=== PATIENT | female | born 1955 | race Caucasian/White ===

== ENCOUNTER 2021-03-30 10:25 | Observation (INO) | payer MEDICARE, OTHER ==
[2021-03-30] MEDS ORDERED: Sodium Chloride 0.9% 10 ML Syringe FLUSH ONE (10:49)
[2021-03-30] MEDS ORDERED: Sodium Chloride 0.9% 80 ML IV SCH (11:00)
[2021-03-30] MEDS ORDERED: Iopamidol 612 MG/ML 100 ML Bottle IV SCH (11:00)
--- NOTE | 2021-03-30 12:41 | CRLCT ---
Indication: Fall Technique: Volumetric multidetector CT images of the head were obtained without the administration of low osmolar intravenous contrast. Comparison: None available Findings: There is no intra-axial or extra-axial fluid collection. There is no mass effect or midline shift. There is age-related cortical atrophy with mild sulcal widening and ex vacuo dilatation of the lateral ventricles. There are chronic small vessel disease changes in the subcortical and periventricular white matter without lost victoria-white differentiation. The orbits and their contents are grossly within normal limits. There is a large frontal subgaleal soft tissue laceration and hematoma. The underlying bony calvarium is otherwise grossly intact. The paranasal sinuses are clear. The mastoid air cells are well aerated. Impression: Large left frontal subgaleal soft tissue laceration and hematoma without evidence of acute intracranial abnormality. Please note that all CT scans at this facility use dose modulation, iterative reconstruction, and/or weight-based dosing when appropriate to reduce radiation dose to as low as reasonably achievable. Dictated by Adrian Sharp MD @ 03/30/2021 12:40:[address] Adrian Sharp @ Mar 30 2021 12:40PM
[2021-03-30] MEDS ORDERED: fentaNYL 100 MCG/2 ML SDV ONE (13:30)
[2021-03-30] MEDS: fentaNYL 100 MCG/2 ML SDV IVPUSH ONE (13:35)
--- NOTE | 2021-03-30 14:06 | CRLCT ---
Indication: Fall, trauma Technique: Volumetric multidetector CT images of the chest, abdomen, and pelvis were obtained after the administration of intravenous contrast. 100 cc Isovue-300 low osmolar intravenous contrast Comparison: None available. FINDINGS: CHEST Postoperative changes of the thyroid gland status post left hemithyroidectomy are appreciated. Otherwise, the thoracic inlet is unremarkable. The thoracic aorta is nonaneurysmal. There is no filling defect to suggest pulmonary embolus. There is no mediastinal, hilar, or axillary adenopathy. There is dependent bibasilar atelectasis versus scar. There is no dense consolidation, effusion or pneumothorax. There is mild interlobular septal thickening. The thoracic osseus structures are intact without fracture, lytic, or blastic lesion. There is age indeterminant endplate deformity of the T5 superior endplate. Otherwise the vertebral body heights are grossly maintained in satisfactory alignment with moderate multilevel degenerative disc disease. There is additional nondisplaced fracture through the T12 superior endplate. No other large, displaced injuries are appreciated. There is no extension to the posterior elements. ABDOMEN AND PELVIS The liver is enlarged with moderate hepatic steatosis. There is no focal abnormality. The spleen is normal in attenuation and size. The gallbladder is unremarkable without radiopaque calculus. There is no intrahepatic or common ductal dilatation. The stomach and duodenum are grossly unremarkable. The pancreas is normal in enhancement without significant atrophy. There is likely an adenoma within the left adrenal gland otherwise the adrenal glands are unremarkable. Nonspecific perinephric stranding and cystic changes of the kidneys are appreciated There is a moderate diffuse amount of intracolonic stool. There is minimal distal colonic diverticulosis. The appendix is unremarkable without significant inflammatory change. The abdominal aorta is non aneurysmal with moderate atherosclerotic calcification. There are calcified fibroids within the uterus otherwise the pelvic viscera are grossly within normal limits. There is demonstration of a circumscribed mass within the left upper quadrant mesentery seen on series 2, image 124 with no apparent connection to adjacent bowel measuring 3.3 centimeters. There is no additional central mesenteric pelvic or retroperitoneal adenopathy. The anterior abdominal wall is grossly intact without significant hernias. There is no free air or free fluid. Moderate degenerative changes of the bilateral hips and sacroiliac joints are appreciated otherwise there is no evidence of displaced pelvic fracture. The lumbar vertebral body heights demonstrate minimal endplate Schmorl`s defects with straightening of the normal lordosis and trace retrolisthesis of L3 on L4. There is moderate facet arthrosis. There is no evidence of displaced fracture. Impression: 1. Somewhat age indeterminate endplate deformity of the T5 vertebral body. 2. Nondisplaced fracture through the left superolateral aspect of the T12 vertebral body. 3. Incidental note made of a circumscribed mass lesion within the left upper quadrant mesentery measuring 3.3 centimeters. Differential considerations could include a fibroma versus pathologic mesenteric lymph node. Follow-up with PET-CT and/or repeat CT of the abdomen and pelvis with oral and IV contrast. 4. Otherwise no evidence of acute abnormality of the chest, abdomen or pelvis. Please note that all CT scans at this facility use dose modulation, iterative reconstruction, and/or weight-based dosing when appropriate to reduce radiation dose to as low as reasonably achievable. Dictated by Adrian Sharp MD @ 03/30/2021 12:55:[address] Adrian Sharp @ Mar 30 2021 12:55PM
--- NOTE | 2021-03-30 14:06 | CRLCT ---
Indication: Fall, neck Pain Technique: Volumetric multidetector CT images of the cervical spine were obtained without the administration of IV contrast. Comparison: None available. Findings: The cervical vertebral body heights are grossly maintained with minimal endplate Schmorl`s defects. There is straightening of the normal cervical lordosis with minimal anterolisthesis of C2 on C3 and C3 on C4. There is no displaced fracture or dislocation of the cervical vertebral bodies. There is questionable nondisplaced lucency through the posterior aspect of the left 2nd rib which may represent a nondisplaced injury. There is moderate to severe degenerative disc disease with disc height loss, marginal osteophyte formation and flowing osteophytes anteriorly with likely minimal ossification of the posterior longitudinal ligament. There is moderate to severe facet arthrosis. The paraspinous soft tissues are grossly within normal limits. Impression: Moderate to severe degenerative changes of the cervical spine without displaced fracture of the vertebral bodies. Incidental note is made of a nondisplaced lucency through the posterior aspect of the left 2nd rib which may represent a nondisplaced fracture. Please note that all CT scans at this facility use dose modulation, iterative reconstruction, and/or weight-based dosing when appropriate to reduce radiation dose to as low as reasonably achievable. Dictated by Adrian Sharp MD @ 03/30/2021 1:25:[address] Adrian Sharp @ Mar 30 2021 1:25PM
[2021-03-30] MEDS ORDERED: oxyCODONE 5 MG Tab PO ONE (14:58)
[2021-03-30] MEDS ORDERED: Ondansetron 4 MG/2 ML SDV IVPUSH ONE (14:58)
[2021-03-30] MEDS ORDERED: Acetaminophen 325 MG Tab PO ONE (14:59)
--- NOTE | 2021-03-30 15:01 | EDM.PDOC ---
<Stu Blackmon - Last Filed: 03/30/21 18:23> ED HPI GENERAL MEDICAL PROBLEM - General Chief Complaint: Head Injury Stated Complaint: FELL AND ROLLED DOWN HILL Time Seen by Provider: 03/30/21 11:20 - Related Data Allergies Allergy/AdvReac Type Severity Reaction Status Date / Time amoxicillin [From Augmentin] Allergy Nausea and Verified 03/30/21 11:00 Vomiting ceftriaxone Allergy Hives Verified 03/30/21 11:00 Cephalosporins Allergy Hives Verified 03/30/21 11:00 ciprofloxacin Allergy Hives Verified 03/30/21 11:00 clavulanic acid Allergy Nausea and Verified 03/30/21 11:00 [From Augmentin] Vomiting Penicillins Allergy Vomiting Verified 03/30/21 11:00 Sulfa (Sulfonamide Allergy Other Verified 03/30/21 11:00 Antibiotics) Home Meds: Home Meds Albuterol Sulfate [Albuterol Sulfate Hfa] 1 - 2 puff IH ASDIRECTED 03/30/21 [History] Aspirin [Halfprin] 81 mg PO DAILY 03/30/21 [History] Bisoprolol/Hydrochlorothiazide [Bisoprolol/HCTZ 5-6.25 MG] 1 tab PO DAILY 03/30/21 [History] Famotidine 20 mg PO DAILY 03/30/21 [History] Iron Ps Cmplx/Vit B12/Fa [Poly-Iron 150 Forte] 1 tab PO DAILY 03/30/21 [History] L. Acidophilus/L.bulgaricus [Lactobacillus Tablet] 1 tab PO DAILY 03/30/21 [History] Levothyroxine 75 mcg PO ACBREAKFAST 03/30/21 [History] Losartan [Cozaar] 50 mg PO DAILY 03/30/21 [History] Montelukast [Singulair] 10 mg PO DAILY 03/30/21 [History] Pravastatin [Pravachol] 1 tab PO DAILY 03/30/21 [History] Venlafaxine [Effexor] 75 mg PO BID 03/30/21 [History] hydrOXYzine HCL [Hydroxyzine HCl] 50 mg PO BID 03/30/21 [History] metFORMIN [Glucophage] 1,000 mg PO BIDMEALS 03/30/21 [History] oxyCODONE 5 mg PO Q6H PRN #8 tab 05/30/21 [Rx] tiZANidine [Zanaflex] 2 mg PO BEDTIME 03/30/21 [History] Course - Re-Assessments/Exams Free Text/Narrative Re-Assessment/Exam: 03/30/21 16:11 65-year-old female seen and evaluated, treated by Dr. Morin who was scheduled for discharge but unfortunately with the significant pain from the T12 fracture she was unable to ambulate even with a walker. I discussed this with Dr. Tierney, he agreed to evaluate her for admission for pain control, therapy, and any further treatment needed. Departure - Departure Time of Disposition: 17:39 Disposition: Admitted As Inpatient 65 Clinical Impression: Scalp laceration Qualifiers: Encounter type: initial encounter Qualified Code(s): S01.01XA - Laceration without foreign body of scalp, initial encounter Fall Qualifiers: Encounter type: initial encounter Qualified Code(s): W19.XXXA - Unspecified fall, initial encounter - Discharge Information <Domenic Morin - Last Filed: 03/31/21 07:40> ED HPI GENERAL MEDICAL PROBLEM - History of Present Illness INITIAL COMMENTS - FREE TEXT/NARRATIVE: This is a 65-year-old female without significant medical history who presents after she stumbled and rolled down a hill. She was throwing ice out of a cooler when she lost her footing, rolled down a hill and into a brick wall. She struck the wall of the left side of her head and body. Patient was brought to the ED by EMS. She was hemodynamically stable in route. When I initially evaluate her on the stretcher in the ER she is concerned of left-sided flank pain and a headache. She is also endorsing some left-sided cervical neck pain. She is not on any blood thinners. 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 Musculoskeletal History: Reports: Arthritis Neurological History: Reports: Headaches, Chronic, Migraines Psychiatric History: Reports: Anxiety, Depression, Panic Attack Endocrine/Metabolic History: Reports: Diabetes, Type II, Hypothyroidism, Obesity/BMI 30+ Dermatologic History: Reports: None - Infectious Disease History Infectious Disease History: Reports: Chicken Pox, Measles, Mumps - Past Surgical History Head Surgeries/Procedures: Reports: None HEENT Surgical History: Reports: Adenoidectomy, Cataract Surgery, Tonsillectomy Cardiovascular Surgical History: Reports: None Respiratory Surgical History: Reports: None GI Surgical History: Reports: None Female Surgical History: Reports: Section, D&C Endocrine Surgical History: Reports: None Neurological Surgical History: Reports: None Musculoskeletal Surgical History: Reports: Knee Replacement, Shoulder Surgery, Other (See Below) Dermatological Surgical History: Reports: Skin Biopsy Social & Family History - Tobacco Use Tobacco Use Status *Q: Current Every Day Tobacco User Years of Tobacco use: 50 Packs/Tins Daily: 0.5 Used Tobacco, but Quit: No Second Hand Smoke Exposure: No - Caffeine Use Caffeine Use: Reports: Tea - Recreational Drug Use Recreational Drug Use: No ED ROS GENERAL - Review of Systems Review Of Systems: See Below Constitutional: Reports: No Symptoms HEENT: Reports: No Symptoms Respiratory: Reports: No Symptoms Cardiovascular: Reports: No Symptoms Endocrine: Reports: No Symptoms GI/Abdominal: Reports: No Symptoms. Denies: Abdominal Pain : Reports: No Symptoms Musculoskeletal: Reports: Neck Pain Skin: Reports: Wound Neurological: Reports: Headache Psychiatric: Reports: No Symptoms Hematologic/Lymphatic: Reports: No Symptoms Immunologic: Reports: No Symptoms ED EXAM, HEAD INJURY - Physical Exam Exam: See Below Exam Limited By: No Limitations General Appearance: Alert, Mild Distress Head: Normocephalic, Scalp Lacerations (Large scalp laceration, approximately 4 cm around the posterior part of left ear.), Facial Lacerations (Superficial gee sions over the left forehead) Nose: Normal Inspection Neck: Tender Lateral (Left lateral tenderness noted, no midline tenderness, no step-off) Respiratory: Lungs Clear, Other (Left-sided lower and posterior rib tenderness) Cardiovascular: Regular Rate, Rhythm GI/Abdominal Exam: Soft, Non-Tender Back Exam: Normal Inspection Extremities: Normal Inspection, Normal Range of Motion Neurologic: No Motor/Sensory Deficits, Alert, Oriented x 3. No: Motor Weakness, Sensory Deficit ED LACERATION/WOUND & LINO PROC - Laceration/Wound Repair Left Head Lac/wound length in cm: 4 Appearance: Irregular Distal NVT: Neuro & Vascular Intact Local Anesthesia - Lidocaine (Xylocaine): 1% Plain Local Anesthetic Volume: 3cc Saline irrigation (cc's): 250 Exploration/Debridement/Repair: Wound Explored, Minimal Debridement Closed with: Sutures Suture Size: 4-0 Suture Type: Prolene, Simple # of Sutures: 6 Tetanus Status Addressed: Yes Complications: No Course - Vital Signs Last Recorded V/S: Last Vital Signs Temp 36.1 C 03/31/21 03:14 Pulse 80 03/31/21 03:14 Resp 18 03/31/21 03:14 BP 138/65 03/31/21 03:14 Pulse Ox 90 L 03/31/21 03:14 - Orders/Labs/Meds Orders: Medication Orders Acetaminophen (Acetaminophen 325 Mg Tab) 650 mg PO Q4H PRN PRN Reason: Pain (Mild 1-3)/fever Albuterol (Albuterol 8 Gm Inhaler) 0 gm INH ASDIRECTED [facility] Albuterol (Albuterol 0.083% 2.5 Mg/3 Ml Neb Soln) 2.5 mg NEB Q4H PRN PRN Reason: Shortness Of Breath/wheezing Aspirin (Aspirin 81 Mg Tab.Ec) 81 mg PO DAILY [facility] Dextrose (Glucose Gel 15 Gm In 37.5 Gm Tube) 15 gm PO ONETIME PRN PRN Reason: Hypoglycemia Dextrose/Water (50% Dextrose In Water 50 Ml Syringe) 50 ml IV ONETIME PRN PRN Reason: Hypoglycemia Enoxaparin Sodium (Enoxaparin 40 Mg/0.4 Ml Syringe) 40 mg SUBCUT BEDTIME [facility] Last Admin: 03/30/21 21:37 Dose: 40 mg Documented by: VICKY Hydromorphone HCl (Hydromorphone 0.5 Mg/0.5 Ml Syringe) 0.5 mg IVPUSH Q2H PRN PRN Reason: Pain (severe 7-10) Hydroxyzine HCl (Hydroxyzine Hcl 25 Mg Tab) 50 mg PO BID [facility] Last Admin: 03/30/21 21:37 Dose: 50 mg Documented by: VICKY Sodium Chloride (Normal Saline) 1,000 mls @ 125 mls/hr IV ASDIRECTED [facility] Last Admin: 03/31/21 02:00 Dose: 125 mls/hr Documented by: Infusion: 03/31/21 02:00 Dose: 125 mls/hr Documented by: Admin: 03/30/21 18:15 Dose: 125 mls/hr Documented by: VICKY Insulin Human Lispro (Insulin Lispro 100 Unit/Ml 3 Ml Kwikpen) 0 unit SUBCUT QIDACANDBED [facility]; Protocol Last Admin: 03/30/21 21:33 Dose: 2 unit Documented by: VICKY Parikhigned by: BELINDA Admin: 03/30/21 18:33 Dose: 1 unit Documented by: VICKY Parikhigned by: GIANA Levothyroxine Sodium (Levothyroxine 25 Mcg Tab) 75 mcg PO ACBREAKFAST [facility] Losartan Potassium (Losartan 50 Mg Tab) 50 mg PO DAILY [facility] Metformin HCl (Metformin 500 Mg Tab) 1,000 mg PO BIDMEALS [facility] Nicotine (Nicotine 14 Mg/24 Hr Patch) 14 mg TRDERM DAILY [facility] Last Admin: 03/30/21 21:26 Dose: Not Given Documented by: VICKY Nicotine Polacrilex (Nicotine Polacrilex 2 Mg Gum) 2 mg CHEW Q1H PRN PRN Reason: Other Non-Formulary Medication (Bisoprolol/Hydrochlorothiazide [Bisoprolol/Hctz 5-6.25 Mg]) 1 tab PO DAILY [facility] Ondansetron HCl (Ondansetron 4 Mg/2 Ml Sdv) 4 mg IV Q4H PRN PRN Reason: Nausea/Vomiting Oxycodone HCl (Oxycodone 5 Mg Tab) 5 mg PO Q4H PRN PRN Reason: Pain (moderate 4-6) Last Admin: 03/31/21 03:57 Dose: 5 mg Documented by: Admin: 03/30/21 23:30 Dose: 5 mg Documented by: Admin: 03/30/21 19:22 Dose: 5 mg Documented by: BELINDA Pantoprazole Sodium (Pantoprazole 40 Mg Tab.Cr) 40 mg PO ACBREAKFAST [facility] Polyethylene Glycol (Polyethylene Glycol 3350 Powder 17 Gm Packet) 17 gm PO DAILY PRN PRN Reason: Constipation Pravastatin Sodium (Pravastatin 20 Mg Tab) 40 mg PO DAILY [facility] Sodium Chloride (Sodium Chloride 0.9% 10 Ml Syringe) 10 ml FLUSH ASDIRECTED PRN PRN Reason: Keep Vein Open Tizanidine HCl (Tizanidine 2 Mg Tab) 2 mg PO BEDTIME [facility] Last Admin: 03/30/21 21:37 Dose: 2 mg Documented by: VICKY Venlafaxine HCl (Venlafaxine 75 Mg Tab) 75 mg PO BID [facility] Last Admin: 03/30/21 21:37 Dose: 75 mg Documented by: WISULIN Labs: Laboratory Tests 03/30/21 03/30/21 Range/Units 10:54 10:54 WBC 9.3 (4.5-11.0) K/uL RBC 4.06 (3.30-5.50) M/uL Hgb 11.8 L (12.0-15.0) g/dL Hct 39.0 (36.0-48.0) % MCV 96 (80-98) fL MCH 29 (27-31) pg MCHC 30 L (32-36) % Plt Count 364 (150-400) K/uL Sodium 142 (140-148) mmol/L Potassium 4.7 (3.6-5.2) mmol/L Chloride 106 (100-108) mmol/L Carbon Dioxide 25 (21-32) mmol/L Anion Gap 11.1 (5.0-14.0) mmol/L BUN 18 (7-18) mg/dL Creatinine 0.9 (0.6-1.0) mg/dL Est Cr Clr Drug Dosing 55.33 mL/min Estimated GFR (MDRD) > 60 (>60) Glucose 154 H (74-106) mg/dL Calcium 8.8 (8.5-10.1) mg/dL Total Bilirubin 0.2 (0.2-1.0) mg/dL AST 38 H (15-37) U/L ALT 34 (12-78) U/L Alkaline Phosphatase 129 H (46-116) U/L Total Protein 6.6 (6.4-8.2) g/dL Albumin 3.5 (3.4-5.0) g/dL Globulin 3.1 (2.3-3.5) g/dL Albumin/Globulin Ratio 1.1 L (1.2-2.2) Meds: Medications Generic Name Dose Route Start Last Admin Trade Name Freq PRN Reason Stop Dose Admin Acetaminophen 650 mg 03/30/21 17:58 Acetaminophen 325 Mg Tab PO Q4H PRN Pain (Mild 1-3)/fever Albuterol 0 gm 03/30/21 17:58 Albuterol 8 Gm Inhaler INH ASDIRECTED [facility] Albuterol 2.5 mg 03/30/21 17:58 Albuterol 0.083% 2.5 Mg/3 Ml Neb Soln NEB Q4H PRN Shortness Of Breath/wheezing Aspirin 81 mg 03/31/21 09:00 Aspirin 81 Mg Tab.Ec PO DAILY [facility] Dextrose 15 gm 03/30/21 17:58 Glucose Gel 15 Gm In 37.5 Gm Tube PO ONETIME PRN Hypoglycemia Dextrose/Water 50 ml 03/30/21 17:58 50% Dextrose In Water 50 Ml Syringe IV ONETIME PRN Hypoglycemia Enoxaparin Sodium 40 mg 03/30/21 21:00 03/30/21 21:37 Enoxaparin 40 Mg/0.4 Ml Syringe SUBCUT 40 mg BEDTIME [facility] Administration Hydromorphone HCl 0.5 mg 03/30/21 17:58 Hydromorphone 0.5 Mg/0.5 Ml Syringe IVPUSH Q2H PRN Pain (severe 7-10) Hydroxyzine HCl 50 mg 03/30/21 21:00 03/30/21 21:37 Hydroxyzine Hcl 25 Mg Tab PO 50 mg BID [facility] Administration Sodium Chloride 1,000 mls @ 125 mls/hr 03/30/21 17:58 03/31/21 02:00 Normal Saline IV 125 mls/hr ASDIRECTED [facility] Administration Insulin Human Lispro 0 unit 03/30/21 17:58 03/30/21 21:33 Insulin Lispro 100 Unit/Ml 3 Ml Kwikpen SUBCUT 2 unit QIDACANDBED [facility] Administration Protocol Levothyroxine Sodium 75 mcg 03/31/21 07:30 Levothyroxine 25 Mcg Tab PO ACBREAKFAST [facility] Losartan Potassium 50 mg 03/31/21 09:00 Losartan 50 Mg Tab PO DAILY [facility] Metformin HCl 1,000 mg 03/31/21 08:00 Metformin 500 Mg Tab PO BIDMEALS [facility] Nicotine 14 mg 03/30/21 18:00 03/30/21 21:26 Nicotine 14 Mg/24 Hr Patch TRDERM Not Given DAILY [facility] Nicotine Polacrilex 2 mg 03/30/21 17:58 Nicotine Polacrilex 2 Mg Gum CHEW Q1H PRN Other Non-Formulary Medication 1 tab 03/31/21 09:00 Bisoprolol/Hydrochlorothiazide [Bisoprolol/Hctz 5-6.25 Mg] PO DAILY [facility] Ondansetron HCl 4 mg 03/30/21 17:58 Ondansetron 4 Mg/2 Ml Sdv IV Q4H PRN Nausea/Vomiting Oxycodone HCl 5 mg 03/30/21 17:58 03/31/21 03:57 Oxycodone 5 Mg Tab PO 5 mg Q4H PRN Administration Pain (moderate 4-6) Pantoprazole Sodium 40 mg 03/31/21 07:30 Pantoprazole 40 Mg Tab.Cr PO ACBREAKFAST [facility] Polyethylene Glycol 17 gm 03/30/21 17:58 Polyethylene Glycol 3350 Powder 17 Gm Packet PO DAILY PRN Constipation Pravastatin Sodium 40 mg 03/31/21 09:00 Pravastatin 20 Mg Tab PO DAILY [facility] Sodium Chloride 10 ml 03/30/21 17:58 Sodium Chloride 0.9% 10 Ml Syringe FLUSH ASDIRECTED PRN Keep Vein Open Tizanidine HCl 2 mg 03/30/21 21:00 03/30/21 21:37 Tizanidine 2 Mg Tab PO 2 mg BEDTIME [facility] Administration Venlafaxine HCl 75 mg 03/30/21 21:00 03/30/21 21:37 Venlafaxine 75 Mg Tab PO 75 mg BID [facility] Administration Discontinued Medications Generic Name Dose Route Start Last Admin Trade Name Freq PRN Reason Stop Dose Admin Acetaminophen 650 mg 03/30/21 14:59 03/30/21 15:16 Acetaminophen 325 Mg Tab PO 03/30/21 15:00 650 mg NOW ONE Administration Fentanyl Confirm 03/30/21 13:30 03/30/21 18:09 Fentanyl 100 Mcg/2 Ml Sdv Administered 03/30/21 13:31 Not Given Dose 100 mcg .ROUTE .STK-MED ONE Sodium Chloride 80 mls @ 3 mls/sec 03/30/21 11:00 03/30/21 11:44 Normal Saline IV 03/30/21 11:01 3 mls/sec ASDIRECTED [facility] Administration Iopamidol 100 ml 03/30/21 11:00 03/30/21 11:44 Iopamidol 612 Mg/Ml 100 Ml Bottle IV 03/30/21 12:00 100 ml . DIRECTED [facility] Administration Lidocaine HCl Confirm 03/30/21 14:31 03/30/21 16:44 Lidocaine 1% 5 Ml Sdv Administered 03/30/21 14:32 5 ml Dose Administration 5 ml .ROUTE .STK-MED ONE Ondansetron HCl 4 mg 03/30/21 14:58 03/30/21 15:14 Ondansetron 4 Mg/2 Ml Sdv IVPUSH 03/30/21 14:59 4 mg ONETIME ONE Administration Oxycodone HCl 5 mg 03/30/21 14:58 03/30/21 15:16 Oxycodone 5 Mg Tab PO 03/30/21 14:59 5 mg ONETIME ONE Administration Sodium Chloride 10 ml 03/30/21 10:49 03/30/21 11:44 Sodium Chloride 0.9% 10 Ml Syringe FLUSH 03/30/21 10:50 10 ml ONETIME ONE Administration - Re-Assessments/Exams Free Text/Narrative Re-Assessment/Exam: Is a 65-year-old female who underwent a traumatic work-up after a fall and rolled down a embankment into a brick wall. History is gathered by both patient and EMS. She was evaluated on the stretcher upon arrival to the ER. Her initial vital signs were stable. She was noted to have significant head and neck trauma as well as tenderness along the left lower rib cage. She is not anticoagulated. Her physical exam findings raise concern for intracranial injury, neck injury, and/or other intrathoracic or abdominal traumatic injury. CT of the head, neck, chest abdomen pelvis was obtained. These were remarkable for a subgaleal hematoma on the left side, no cervical spine injury, no intrathoracic or abdominal injury, she was noted to have a lateral T12 endplate fracture. Laceration was repaired as above. Blood work reassuring She was signed out to my colleague pending an ambulatory trial with plan for possible discharge with follow-up in her home city versus admission for pain control. 03/30/21 15:01 Departure - Departure Time of Disposition: 14:59 - Discharge Information *PRESCRIPTION DRUG MONITORING PROGRAM REVIEWED*: No *COPY OF PRESCRIPTION DRUG MONITORING REPORT IN PATIENT GILBERT: No Sepsis Event Note (ED) - Evaluation Sepsis Screening Result: No Definite Risk
--- NOTE | 2021-03-30 16:46 | PCM.HP.2 ---
H&P History of Present Illness - General Date of Service: 03/30/21 Admit Problem/Dx: Admission Diagnosis/Problem Admission Diagnosis/Problem Fracture of vertebra Source of Information: Patient, Provider, RN Notes Reviewed History Limitations: Reports: No Limitations - History of Present Illness Initial Comments - Free Text/Narative: Ms. Parnell is a 65-year-old woman who was admitted through the emergency department observation status for management of pain secondary to a T12 vertebral body fracture. She was well until this morning when she fell down a hill hitting a block wall. She was brought into the emergency department by EMS for further evaluation. CT scan of the head and neck shows no acute fractures or abnormalities. She also underwent CT scan of the chest abdomen and pelvis. This did show evidence of probably an old T5 compression fracture as well as an acute fracture in the body of T12. 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 Follow-up with CT scan IV and oral contrast versus PET scan recommended. Because of her fracture she is very uncomfortable and unable to transfer or ambulate. - Related Data Allergies/Adverse Reactions: Allergies Allergy/AdvReac Type Severity Reaction Status Date / Time amoxicillin [From Augmentin] Allergy Nausea and Verified 03/30/21 11:00 Vomiting ceftriaxone Allergy Hives Verified 03/30/21 11:00 Cephalosporins Allergy Hives Verified 03/30/21 11:00 ciprofloxacin Allergy Hives Verified 03/30/21 11:00 clavulanic acid Allergy Nausea and Verified 03/30/21 11:00 [From Augmentin] Vomiting Penicillins Allergy Vomiting Verified 03/30/21 11:00 Sulfa (Sulfonamide Allergy Other Verified 03/30/21 11:00 Antibiotics) Home Medications: Home Meds Albuterol Sulfate [Albuterol Sulfate Hfa] 1 - 2 puff IH ASDIRECTED 03/30/21 [History] Aspirin [Halfprin] 81 mg PO DAILY 03/30/21 [History] Bisoprolol/Hydrochlorothiazide [Bisoprolol/HCTZ 5-6.25 MG] 1 tab PO DAILY 03/30/21 [History] Famotidine 20 mg PO DAILY 03/30/21 [History] Iron Ps Cmplx/Vit B12/Fa [Poly-Iron 150 Forte] 1 tab PO DAILY 03/30/21 [History] L. Acidophilus/L.bulgaricus [Lactobacillus Tablet] 1 tab PO DAILY 03/30/21 [History] Levothyroxine 75 mcg PO ACBREAKFAST 03/30/21 [History] Losartan [Cozaar] 50 mg PO DAILY 03/30/21 [History] Montelukast [Singulair] 10 mg PO DAILY 03/30/21 [History] Pravastatin [Pravachol] 1 tab PO DAILY 03/30/21 [History] Venlafaxine [Effexor] 75 mg PO BID 03/30/21 [History] hydrOXYzine HCL [Hydroxyzine HCl] 50 mg PO BID 03/30/21 [History] metFORMIN [Glucophage] 1,000 mg PO BIDMEALS 03/30/21 [History] oxyCODONE 5 mg PO Q6H PRN #8 tab 03/30/21 [Rx] tiZANidine [Zanaflex] 2 mg PO BEDTIME 03/30/21 [History] Past Medical History Cardiovascular History: Reports: High Cholesterol, Hypertension, HI Respiratory History: Reports: Sleep Apnea Other Respiratory History: cpap Genitourinary History: Reports: None 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: , 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 Musculoskeletal History: Reports: Arthritis Neurological History: Reports: Headaches, Chronic, Migraines Psychiatric History: Reports: Anxiety, Depression, Panic Attack Endocrine/Metabolic History: Reports: Diabetes, Type II, Hypothyroidism, Obesity/BMI 30+ Dermatologic History: Reports: None - Infectious Disease History Infectious Disease History: Reports: Chicken Pox, Measles, Mumps - Past Surgical History Head Surgeries/Procedures: Reports: None HEENT Surgical History: Reports: Adenoidectomy, Cataract Surgery, Tonsillectomy Cardiovascular Surgical History: Reports: None Respiratory Surgical History: Reports: None GI Surgical History: Reports: None Female Surgical History: Reports: Section, D&C Endocrine Surgical History: Reports: None Neurological Surgical History: Reports: None Musculoskeletal Surgical History: Reports: Knee Replacement, Shoulder Surgery, Other (See Below) Dermatological Surgical History: Reports: Skin Biopsy Social & Family History - Tobacco Use Tobacco Use Status *Q: Current Every Day Tobacco User Years of Tobacco use: 50 Packs/Tins Daily: 0.5 Used Tobacco, but Quit: No Second Hand Smoke Exposure: No - Caffeine Use Caffeine Use: Reports: Tea - Recreational Drug Use Recreational Drug Use: No H&P Review of Systems - Review of Systems: Review Of Systems: See Below General: Reports: No Symptoms HEENT: Reports: No Symptoms Pulmonary: Reports: No Symptoms Cardiovascular: Reports: No Symptoms Gastrointestinal: Reports: No Symptoms Genitourinary: Reports: No Symptoms Musculoskeletal: Reports: Back Pain Skin: Reports: Other (Abrasion laceration left ear) Psychiatric: Reports: No Symptoms Neurological: Reports: No Symptoms Hematologic/Lymphatic: Reports: No Symptoms Immunologic: Reports: No Symptoms Exam - Exam Exam: See Below - Vital Signs Vital Signs: Last Vital Signs Temp 98.0 F 03/30/21 11:10 Pulse 72 03/30/21 16:44 Resp 20 03/30/21 11:10 BP 117/51 L 03/30/21 16:44 Pulse Ox 94 L 03/30/21 16:44 Weight: 230 lb - Exam Quality Assessment: DVT Prophylaxis General: Alert, Oriented, Cooperative, Moderate Distress HEENT: Conjunctiva Clear, Hearing Intact, Mucosa Moist & [place], Normal Nasal Septum, Posterior Pharynx Clear, Pupils Equal Neck: Supple, Trachea Midline, +2 Carotid Pulse wo Bruit Lungs: Clear to Auscultation, Normal Respiratory Effort Cardiovascular: Regular Rate, Regular Rhythm, Normal S1, Normal S2. No: Systolic Murmur, Diastolic Murmur GI/Abdominal Exam: Soft, Non-Tender, No Organomegaly, No Distention Back Exam: Paraspinal Tenderness, Vertebral Tenderness Extremities: Non-Tender, No Pedal Edema Skin: Warm, Dry, Intact Neurological: Cranial Nerves Intact, Strength Equal Bilateral, Normal Speech, Normal Tone, Sensation Intact. No: Focal Deficit Neuro Extensive - Mental Status: Alert, Oriented x3, Normal Mood/Affect, Normal Cognition, Memory Intact - Patient Data Lab Results Last 24 hrs: Laboratory Results - last 24 hr 03/30/21 03/30/21 Range/Units 10:54 10:54 WBC 9.3 (4.5-11.0) K/uL RBC 4.06 (3.30-5.50) M/uL Hgb 11.8 L (12.0-15.0) g/dL Hct 39.0 (36.0-48.0) % MCV 96 (80-98) fL MCH 29 (27-31) pg MCHC 30 L (32-36) % Plt Count 364 (150-400) K/uL Sodium 142 (140-148) mmol/L Potassium 4.7 (3.6-5.2) mmol/L Chloride 106 (100-108) mmol/L Carbon Dioxide 25 (21-32) mmol/L Anion Gap 11.1 (5.0-14.0) mmol/L BUN 18 (7-18) mg/dL Creatinine 0.9 (0.6-1.0) mg/dL Est Cr Clr Drug Dosing 55.33 mL/min Estimated GFR (MDRD) > 60 (>60) Glucose 154 H (74-106) mg/dL Calcium 8.8 (8.5-10.1) mg/dL Total Bilirubin 0.2 (0.2-1.0) mg/dL AST 38 H (15-37) U/L ALT 34 (12-78) U/L Alkaline Phosphatase 129 H (46-116) U/L Total Protein 6.6 (6.4-8.2) g/dL Albumin 3.5 (3.4-5.0) g/dL Globulin 3.1 (2.3-3.5) g/dL Albumin/Globulin Ratio 1.1 L (1.2-2.2) Result Diagrams: 03/30/21 10:54 03/30/21 10:54 Sepsis Event Note - Evaluation Sepsis Screening Result: No Definite Risk - Focused Exam Vital Signs: Vital Signs Temp Pulse Resp BP Pulse Ox 03/30/21 16:44 72 117/51 L 94 L 03/30/21 15:00 63 165/84 H 03/30/21 11:10 98.0 F 71 20 139/63 96 03/30/21 11:09 98.0 F 71 20 139/63 96 03/30/21 11:08 72 15 150/75 H 95 *Q Meaningful Use (ADM) - VTE Risk Assess *Q Each Risk Factor Represents 1 Point: Obesity ( BMI > 25 kg/m2) Total Score 1 Point Risk Factors: 1 Each Risk Factor Represents 2 Points: Age 60 - 74 Years Total Score 2 Point Risk Factors: 2 Each Risk Factor Represents 3 Points: None Total Score 3 Point Risk Factors: 0 Each Risk Factor Represents 5 Points: None Total Score 5 Point Risk Factors: 0 Venous Thromboembolism Risk Factor Score *Q: 3 Problem List Initiated/Reviewed/Updated: Yes Orders Last 24hrs: Active Orders 24 hr Category Date Time Status Patient Status Manage Transfer [TRANSFER] Routine ADT 03/30/21 16:35 Active Resuscitation Status Routine Resus Stat 03/30/21 16:39 Ordered Assessment/Plan Comment:: ASSESSMENT AND PLAN T12 VERTEBRAL BODY FRACTURE-secondary to a traumatic fall down a hill earlier today. -Pain medication as needed -Physical therapy consult when available -May require [facility] placement because of mobility limitations. MESENTERIC MASS NOTED ON CT OF THE ABDOMEN -Consider follow-up CT scan with IV and oral contrast versus PET scan for further evaluation LACERATION LEFT EAR -Status post repair by Dr. Morin TYPE 2 DIABETES MELLITUS -Continue Metformin -4 times daily glucometers -Low-dose sliding scale Humalog MAINTENANCE ISSUES -DVT prophylaxis; Lovenox 40 mg subcu daily -GI prophylaxis; Protonix -Green catheter; not indicated -Nutrition; regular diet -Nicotine dependence; nicotine patch and nicotine gum CODE STATUS-FULL CODE ADMISSION STATUS-this patient will be admitted to observation status, expect no more than a one night hospital stay for evaluation and management of problems as outlined above. DISPOSITION-anticipate discharge to home after the hospital stay. PRIMARY CARE PROVIDER-patient is from [facility] and receives her primary care there. - Mortality Measure Prognosis:: Good
[2021-03-30] MEDS ORDERED: Nicotine Polacrilex 2 MG Gum CHEW PRN (17:58)
[2021-03-30] MEDS ORDERED: Glucose Gel 15 GM in 37.5 GM Tube PO PRN (17:58)
[2021-03-30] MEDS ORDERED: Albuterol 8 GM Inhaler INH SCH (17:58)
[2021-03-30] MEDS ORDERED: Albuterol 0.083% 2.5 MG/3 ML Neb Soln NEB PRN (17:58)
[2021-03-30] MEDS ORDERED: 50% Dextrose in Water 50 ML Syringe IV PRN (17:58)
[2021-03-30] MEDS ORDERED: Sodium Chloride 0.9% 10 ML Syringe FLUSH PRN (17:58)
[2021-03-30] MEDS ORDERED: Polyethylene Glycol 3350 Powder 17 GM Packet PO PRN (17:58)
[2021-03-30] MEDS: Sodium Chloride 0.9% 1,000 ML IV SCH (18:15)
[2021-03-30] MEDS: Insulin Lispro 100 Unit/ML 3 ML KwikPen SUBCUT SCH ×2 (18:33→21:33)
[2021-03-30] MEDS: oxyCODONE 5 MG Tab PO PRN ×2 (19:22→23:30)
[2021-03-30] MEDS: Nicotine 14 MG/24 Hr Patch TRDERM SCH (21:26)
[2021-03-30] MEDS: Venlafaxine 75 MG Tab PO SCH (21:37)
[2021-03-30] MEDS: tiZANidine 2 MG Tab PO SCH (21:37)
[2021-03-30] MEDS: hydrOXYzine HCl 25 MG Tab PO SCH (21:37)
[2021-03-30] MEDS: Enoxaparin 40 MG/0.4 ML Syringe SUBCUT SCH (21:37)
[2021-03-31] MEDS: Sodium Chloride 0.9% 1,000 ML IV SCH (02:00)
[2021-03-31] MEDS: oxyCODONE 5 MG Tab PO PRN ×4 (03:57→22:45)
[2021-03-31] MEDS: Ondansetron 4 MG/2 ML SDV IV PRN ×2 (07:39→18:35)
[2021-03-31] MEDS: Acetaminophen 325 MG Tab PO PRN ×2 (07:39→23:44)
[2021-03-31] MEDS: fentaNYL 100 MCG/2 ML SDV IVPUSH ONE (08:37)
[2021-03-31] MEDS: hydrOXYzine HCl 25 MG Tab PO SCH ×2 (08:53→20:31)
[2021-03-31] MEDS: Losartan 50 MG Tab PO SCH (08:53)
[2021-03-31] MEDS: Pantoprazole 40 MG Tab.CR PO SCH (08:54)
[2021-03-31] MEDS: Venlafaxine 75 MG Tab PO SCH ×2 (08:54→20:31)
[2021-03-31] MEDS: metFORMIN 500 MG Tab PO SCH ×2 (08:54→17:09)
[2021-03-31] MEDS: Levothyroxine 25 MCG Tab PO SCH (08:54)
[2021-03-31] MEDS: Aspirin 81 MG Tab.EC PO SCH (08:54)
[2021-03-31] MEDS: Pravastatin 20 MG Tab PO SCH (08:54)
[2021-03-31] MEDS: Insulin Lispro 100 Unit/ML 3 ML KwikPen SUBCUT SCH ×2 (08:56→12:18)
[2021-03-31] MEDS ORDERED: BISOPROLOL PO SCH (09:00)
[2021-03-31] MEDS ORDERED: HYDROCHLOROTHIAZIDE PO SCH (09:00)
[2021-03-31] MEDS ORDERED: [UNRECOGNIZED DRUG - OTHER] PO SCH (09:00)
[2021-03-31] MEDS: Nicotine 14 MG/24 Hr Patch TRDERM SCH (09:07)
--- NOTE | 2021-03-31 11:08 | PCM.PN ---
- General Info Date of Service: 03/31/21 Subjective Update: No acute events overnight. Back pain is a little better today but still had a fair amount of difficulty with position changes and getting to the chair. Oxycodone does help the pain. She feels like she has a new component of muscle spasm both on the left and the right in her lower to mid back today. No nausea. Nervous about going home with significant limitation in her mobility but moving a little better today. Functional Status: Reports: Pain Controlled, Tolerating Diet - Review of Systems General: Reports: Weakness Musculoskeletal: Reports: Back Pain - Patient Data Vitals - Most Recent: Last Vital Signs Temp 35.6 C L 03/31/21 07:22 Pulse 79 03/31/21 07:22 Resp 18 03/31/21 07:22 BP 162/77 H 03/31/21 08:53 Pulse Ox 94 L 03/31/21 07:24 Weight - Most Recent: 106.866 kg I&O - Last 24 Hours: Intake & Output 03/30/21 03/31/21 03/31/21 22:59 06:59 14:59 Intake Total 240 1316 400 Output Total 900 900 Balance -660 1316 -500 Lab Results Last 24 Hours: Laboratory Results - last 24 hr 03/30/21 03/30/21 03/30/21 Range/Units 10:54 18:20 21:06 WBC (4.5-11.0) K/uL RBC (3.30-5.50) M/uL Hgb (12.0-15.0) g/dL Hct (36.0-48.0) % MCV (80-98) fL MCH (27-31) pg MCHC (32-36) % Plt Count (150-400) K/uL Neut % (Auto) (36-66) % Lymph % (Auto) (24-44) % [place] % (Auto) (2-6) % Eos % (Auto) (2-4) % Baso % (Auto) (0-1) % Sodium 142 (140-148) mmol/L Potassium 4.7 (3.6-5.2) mmol/L Chloride 106 (100-108) mmol/L Carbon Dioxide 25 (21-32) mmol/L Anion Gap 11.1 (5.0-14.0) mmol/L BUN 18 (7-18) mg/dL Creatinine 0.9 (0.6-1.0) mg/dL Est Cr Clr Drug Dosing 55.33 mL/min Estimated GFR (MDRD) > 60 (>60) Glucose 154 H (74-106) mg/dL POC Glucose 167 H 209 H (74-106) mg/dL Calcium 8.8 (8.5-10.1) mg/dL Magnesium (1.8-2.4) mg/dL Total Bilirubin 0.2 (0.2-1.0) mg/dL AST 38 H (15-37) U/L ALT 34 (12-78) U/L Alkaline Phosphatase 129 H (46-116) U/L Total Protein 6.6 (6.4-8.2) g/dL Albumin 3.5 (3.4-5.0) g/dL Globulin 3.1 (2.3-3.5) g/dL Albumin/Globulin Ratio 1.1 L (1.2-2.2) 03/31/21 03/31/21 03/31/21 Range/Units 04:15 04:15 07:32 WBC 6.4 (4.5-11.0) K/uL RBC 3.63 (3.30-5.50) M/uL Hgb 10.9 L (12.0-15.0) g/dL Hct 35.4 L (36.0-48.0) % MCV 98 (80-98) fL MCH 30 (27-31) pg MCHC 31 L (32-36) % Plt Count 354 (150-400) K/uL Neut % (Auto) 73.6 H (36-66) % Lymph % (Auto) 15.5 L (24-44) % [place] % (Auto) 8.0 H (2-6) % Eos % (Auto) 2.7 (2-4) % Baso % (Auto) 0.2 (0-1) % Sodium 142 (140-148) mmol/L Potassium 4.1 (3.6-5.2) mmol/L Chloride 105 (100-108) mmol/L Carbon Dioxide 25 (21-32) mmol/L Anion Gap 12.1 (5.0-14.0) mmol/L BUN 18 (7-18) mg/dL Creatinine 0.8 (0.6-1.0) mg/dL Est Cr Clr Drug Dosing 62.24 mL/min Estimated GFR (MDRD) > 60 (>60) Glucose 140 H (74-106) mg/dL POC Glucose 156 H (74-106) mg/dL Calcium 8.2 L (8.5-10.1) mg/dL Magnesium 2.1 (1.8-2.4) mg/dL Total Bilirubin (0.2-1.0) mg/dL AST (15-37) U/L ALT (12-78) U/L Alkaline Phosphatase (46-116) U/L Total Protein (6.4-8.2) g/dL Albumin (3.4-5.0) g/dL Globulin (2.3-3.5) g/dL Albumin/Globulin Ratio (1.2-2.2) Med Orders - Current: Current Medications Acetaminophen (Acetaminophen 325 Mg Tab) 650 mg PO Q4H PRN PRN Reason: Pain (Mild 1-3)/fever Last Admin: 03/31/21 07:39 Dose: 650 mg Documented by: Albuterol (Albuterol 8 Gm Inhaler) 0 gm INH ASDIRECTED [facility] Albuterol (Albuterol 0.083% 2.5 Mg/3 Ml Neb Soln) 2.5 mg NEB Q4H PRN PRN Reason: Shortness Of Breath/wheezing Aspirin (Aspirin 81 Mg Tab.Ec) 81 mg PO DAILY [facility] Last Admin: 03/31/21 08:54 Dose: 81 mg Documented by: Dextrose (Glucose Gel 15 Gm In 37.5 Gm Tube) 15 gm PO ONETIME PRN PRN Reason: Hypoglycemia Dextrose/Water (50% Dextrose In Water 50 Ml Syringe) 50 ml IV ONETIME PRN PRN Reason: Hypoglycemia Enoxaparin Sodium (Enoxaparin 40 Mg/0.4 Ml Syringe) 40 mg SUBCUT BEDTIME [facility] Last Admin: 03/30/21 21:37 Dose: 40 mg Documented by: Hydromorphone HCl (Hydromorphone 0.5 Mg/0.5 Ml Syringe) 0.5 mg IVPUSH Q2H PRN PRN Reason: Pain (severe 7-10) Hydroxyzine HCl (Hydroxyzine Hcl 25 Mg Tab) 50 mg PO BID [facility] Last Admin: 03/31/21 08:53 Dose: 50 mg Documented by: Levothyroxine Sodium (Levothyroxine 25 Mcg Tab) 75 mcg PO ACBREAKFAST [facility] Last Admin: 03/31/21 08:54 Dose: 75 mcg Documented by: Losartan Potassium (Losartan 50 Mg Tab) 50 mg PO DAILY [facility] Last Admin: 03/31/21 08:53 Dose: 50 mg Documented by: Metformin HCl (Metformin 500 Mg Tab) 1,000 mg PO BIDMEALS [facility] Last Admin: 03/31/21 08:54 Dose: 1,000 mg Documented by: Nicotine (Nicotine 14 Mg/24 Hr Patch) 14 mg TRDERM DAILY [facility] Last Admin: 03/31/21 09:07 Dose: Not Given Documented by: Nicotine Polacrilex (Nicotine Polacrilex 2 Mg Gum) 2 mg CHEW Q1H PRN PRN Reason: Other Non-Formulary Medication (Bisoprolol/Hydrochlorothiazide [Bisoprolol/Hctz 5-6.25 Mg]) 1 tab PO DAILY [facility] Ondansetron HCl (Ondansetron 4 Mg/2 Ml Sdv) 4 mg IV Q4H PRN PRN Reason: Nausea/Vomiting Last Admin: 03/31/21 07:39 Dose: 4 mg Documented by: Oxycodone HCl (Oxycodone 5 Mg Tab) 5 mg PO Q4H PRN PRN Reason: Pain (moderate 4-6) Last Admin: 03/31/21 08:30 Dose: 5 mg Documented by: Pantoprazole Sodium (Pantoprazole 40 Mg Tab.Cr) 40 mg PO ACBREAKFAST [facility] Last Admin: 03/31/21 08:54 Dose: 40 mg Documented by: Polyethylene Glycol (Polyethylene Glycol 3350 Powder 17 Gm Packet) 17 gm PO DAILY PRN PRN Reason: Constipation Pravastatin Sodium (Pravastatin 20 Mg Tab) 40 mg PO DAILY [facility] Last Admin: 03/31/21 08:54 Dose: 40 mg Documented by: Sodium Chloride (Sodium Chloride 0.9% 10 Ml Syringe) 10 ml FLUSH ASDIRECTED PRN PRN Reason: Keep Vein Open Tizanidine HCl (Tizanidine 2 Mg Tab) 2 mg PO BEDTIME [facility] Last Admin: 03/30/21 21:37 Dose: 2 mg Documented by: Venlafaxine HCl (Venlafaxine 75 Mg Tab) 75 mg PO BID [facility] Last Admin: 03/31/21 08:54 Dose: 75 mg Documented by: Discontinued Medications Acetaminophen (Acetaminophen 325 Mg Tab) 650 mg PO NOW ONE Stop: 03/30/21 15:00 Last Admin: 03/30/21 15:16 Dose: 650 mg Documented by: Fentanyl (Fentanyl 100 Mcg/2 Ml Sdv) Confirm Administered Dose 100 mcg .ROUTE .STK-MED ONE Stop: 03/30/21 13:31 Last Admin: 03/30/21 18:09 Dose: Not Given Documented by: Fentanyl (Fentanyl 100 Mcg/2 Ml Sdv) 50 mcg IVPUSH ONETIME ONE Stop: 03/30/21 12:01 Last Admin: 03/30/21 13:35 Dose: 50 mcg Documented by: Sodium Chloride (Normal Saline) 80 mls @ 3 mls/sec IV ASDIRECTED [facility] Stop: 03/30/21 11:01 Last Admin: 03/30/21 11:44 Dose: 3 mls/sec Documented by: Sodium Chloride (Normal Saline) 1,000 mls @ 125 mls/hr IV ASDIRECTED [facility] Last Admin: 03/31/21 02:00 Dose: 125 mls/hr Documented by: Insulin Human Lispro (Insulin Lispro 100 Unit/Ml 3 Ml Kwikpen) 0 unit SUBCUT QIDACANDBED [facility]; Protocol Last Admin: 03/31/21 08:56 Dose: 1 unit Documented by: Iopamidol (Iopamidol 612 Mg/Ml 100 Ml Bottle) 100 ml IV . DIRECTED [facility] Stop: 03/30/21 12:00 Last Admin: 03/30/21 11:44 Dose: 100 ml Documented by: Lidocaine HCl (Lidocaine 1% 5 Ml Sdv) Confirm Administered Dose 5 ml .ROUTE .STK-MED ONE Stop: 03/30/21 14:32 Last Admin: 03/30/21 16:44 Dose: 5 ml Documented by: Lidocaine HCl (Lidocaine 1% 5 Ml Sdv) 5 ml INJECT ONETIME ONE Stop: 03/30/21 14:31 Last Admin: 03/31/21 08:37 Dose: Not Given Documented by: Ondansetron HCl (Ondansetron 4 Mg/2 Ml Sdv) 4 mg IVPUSH ONETIME ONE Stop: 03/30/21 14:59 Last Admin: 03/30/21 15:14 Dose: 4 mg Documented by: Oxycodone HCl (Oxycodone 5 Mg Tab) 5 mg PO ONETIME ONE Stop: 03/30/21 14:59 Last Admin: 03/30/21 15:16 Dose: 5 mg Documented by: Sodium Chloride (Sodium Chloride 0.9% 10 Ml Syringe) 10 ml FLUSH ONETIME ONE Stop: 03/30/21 10:50 Last Admin: 03/30/21 11:44 Dose: 10 ml Documented by: - Exam Quality Assessment: No: Supplemental Oxygen General: Alert, Oriented, Cooperative, No Acute Distress Lungs: Normal Respiratory Effort Cardiovascular: Regular Rate, Regular Rhythm GI/Abdominal Exam: Soft, No Distention Extremities: No Pedal Edema Psy/Mental Status: Alert, Normal Affect - Patient Data Lab Results Last 24 hrs: Laboratory Results - last 24 hr 03/30/21 03/30/21 03/30/21 Range/Units 10:54 18:20 21:06 WBC (4.5-11.0) K/uL RBC (3.30-5.50) M/uL Hgb (12.0-15.0) g/dL Hct (36.0-48.0) % MCV (80-98) fL MCH (27-31) pg MCHC (32-36) % Plt Count (150-400) K/uL Neut % (Auto) (36-66) % Lymph % (Auto) (24-44) % [place] % (Auto) (2-6) % Eos % (Auto) (2-4) % Baso % (Auto) (0-1) % Sodium 142 (140-148) mmol/L Potassium 4.7 (3.6-5.2) mmol/L Chloride 106 (100-108) mmol/L Carbon Dioxide 25 (21-32) mmol/L Anion Gap 11.1 (5.0-14.0) mmol/L BUN 18 (7-18) mg/dL Creatinine 0.9 (0.6-1.0) mg/dL Est Cr Clr Drug Dosing 55.33 mL/min Estimated GFR (MDRD) > 60 (>60) Glucose 154 H (74-106) mg/dL POC Glucose 167 H 209 H (74-106) mg/dL Calcium 8.8 (8.5-10.1) mg/dL Magnesium (1.8-2.4) mg/dL Total Bilirubin 0.2 (0.2-1.0) mg/dL AST 38 H (15-37) U/L ALT 34 (12-78) U/L Alkaline Phosphatase 129 H (46-116) U/L Total Protein 6.6 (6.4-8.2) g/dL Albumin 3.5 (3.4-5.0) g/dL Globulin 3.1 (2.3-3.5) g/dL Albumin/Globulin Ratio 1.1 L (1.2-2.2) 03/31/21 03/31/21 03/31/21 Range/Units 04:15 04:15 07:32 WBC 6.4 (4.5-11.0) K/uL RBC 3.63 (3.30-5.50) M/uL Hgb 10.9 L (12.0-15.0) g/dL Hct 35.4 L (36.0-48.0) % MCV 98 (80-98) fL MCH 30 (27-31) pg MCHC 31 L (32-36) % Plt Count 354 (150-400) K/uL Neut % (Auto) 73.6 H (36-66) % Lymph % (Auto) 15.5 L (24-44) % [place] % (Auto) 8.0 H (2-6) % Eos % (Auto) 2.7 (2-4) % Baso % (Auto) 0.2 (0-1) % Sodium 142 (140-148) mmol/L Potassium 4.1 (3.6-5.2) mmol/L Chloride 105 (100-108) mmol/L Carbon Dioxide 25 (21-32) mmol/L Anion Gap 12.1 (5.0-14.0) mmol/L BUN 18 (7-18) mg/dL Creatinine 0.8 (0.6-1.0) mg/dL Est Cr Clr Drug Dosing 62.24 mL/min Estimated GFR (MDRD) > 60 (>60) Glucose 140 H (74-106) mg/dL POC Glucose 156 H (74-106) mg/dL Calcium 8.2 L (8.5-10.1) mg/dL Magnesium 2.1 (1.8-2.4) mg/dL Total Bilirubin (0.2-1.0) mg/dL AST (15-37) U/L ALT (12-78) U/L Alkaline Phosphatase (46-116) U/L Total Protein (6.4-8.2) g/dL Albumin (3.4-5.0) g/dL Globulin (2.3-3.5) g/dL Albumin/Globulin Ratio (1.2-2.2) Result Diagrams: 03/31/21 04:15 03/31/21 04:15 Sepsis Event Note - Evaluation Sepsis Screening Result: No Definite Risk - Focused Exam Vital Signs: Vital Signs Temp Pulse Resp BP BP Pulse Ox 03/31/21 08:53 162/77 H 03/31/21 07:24 94 L 03/31/21 07:22 35.6 C L 79 18 162/77 H 92 L 03/31/21 03:14 36.1 C 80 18 138/65 90 L 03/31/21 01:21 91 L - Problem List Review Problem List Initiated/Reviewed/Updated: Yes - My Orders Last 24 Hours: My Active Orders 03/31/21 11:06 Convert IV to Saline Lock [OM.PC] Routine 03/31/21 11:07 tiZANidine [Zanaflex] 2 mg PO Q6H PRN - Plan Plan:: ASSESSMENT AND PLAN T12 VERTEBRAL BODY FRACTURE-secondary to a traumatic fall down a hill. Pain controlled at rest but fairly uncomfortable with movement and hesitant to move because of pain. -Pain medication as needed -Physical therapy consult in the morning MESENTERIC MASS NOTED ON CT OF THE ABDOMEN -Consider outpatient follow-up with CT scan with IV and oral contrast versus PET scan for further evaluation LACERATION LEFT EAR-Status post repair by Dr. Morin TYPE 2 DIABETES MELLITUS-controlled with oral medication. -Continue Metformin Tobacco dependence-nicotine patch and encourage cessation. MAINTENANCE ISSUES -DVT prophylaxis; Lovenox 40 mg subcu daily -GI prophylaxis; Protonix -Green catheter; not indicated -Nutrition; regular diet DISPOSITION-anticipate discharge to home after the hospital stay. PRIMARY CARE PROVIDER-patient is from [place], [place] and receives her primary care there. Joseph Lane MD
[2021-03-31] MEDS: Ibuprofen 600 MG Tab PO PRN ×2 (12:44→23:42)
[2021-03-31] MEDS: tiZANidine 4 MG Tab PO PRN (13:42)
[2021-03-31] MEDS: tiZANidine 2 MG Tab PO SCH (20:31)
[2021-03-31] MEDS: Enoxaparin 40 MG/0.4 ML Syringe SUBCUT SCH (20:32)
[2021-04-01] MEDS: HYDROmorphone 0.5 MG/0.5 ML Syringe IVPUSH PRN ×3 (00:11→07:04)
--- NOTE | 2021-04-01 04:12 | CRLCR ---
HISTORY: Decreased oxygen saturation. COMPARISON: CT of the chest from 03/30/2021 FINDINGS: A portable erect AP view of the chest was obtained at 0311 hours. Again seen is mild linear scarring in the left lateral mid-lower lung. The lungs otherwise remain clear. No focal or diffuse infiltrates are present. The heart remains normal in size. The mediastinum is normal in appearance. The osseous structures are normal in appearance for the patient`s age. IMPRESSION: No active disease seen in the chest. Dictated by Willi Kirkland MD @ 04/01/2021 4:11:[address] Willi Kirkland @ Apr 01 2021 4:11AM
[2021-04-01] MEDS: Ibuprofen 600 MG Tab PO PRN (07:12)
[2021-04-01] MEDS: tiZANidine 4 MG Tab PO PRN (07:13)
[2021-04-01] MEDS: Pantoprazole 40 MG Tab.CR PO SCH (07:14)
[2021-04-01] MEDS: Levothyroxine 25 MCG Tab PO SCH (07:15)
[2021-04-01] MEDS: Acetaminophen 325 MG Tab PO PRN ×3 (08:23→16:35)
[2021-04-01] MEDS: oxyCODONE 5 MG Tab PO PRN ×3 (08:24→16:36)
[2021-04-01] MEDS: hydrOXYzine HCl 25 MG Tab PO SCH (08:25)
[2021-04-01] MEDS: Losartan 50 MG Tab PO SCH (08:25)
[2021-04-01] MEDS: Venlafaxine 75 MG Tab PO SCH (08:25)
[2021-04-01] MEDS: Pravastatin 20 MG Tab PO SCH (08:25)
[2021-04-01] MEDS: metFORMIN 500 MG Tab PO SCH (08:25)
[2021-04-01] MEDS: Nicotine 14 MG/24 Hr Patch TRDERM SCH (08:27)
[2021-04-01] MEDS: Aspirin 81 MG Tab.EC PO SCH (08:27)
--- NOTE | 2021-04-01 14:01 | PCM.DCSUM1 ---
Discharge Summary - Hospital Course Brief History: 65-year-old female with history of hypertension, tobacco dependence and type 2 diabetes mellitus who presented with back pain after falling down a hill and over a retaining wall. Diagnosis: Stroke: No - Discharge Data Discharge Date: 04/01/21 Discharge Disposition: Home, Self-Care 01 Condition: Fair - Referral to Home Health Primary Care Physician: PCP None - Discharge Diagnosis/Problem(s) (1) T12 vertebral fracture SNOMED Code(s): 820362730 ICD Code: S22.089A - UNSP FRACTURE OF T11-T12 VERTEBRA, INIT FOR CLOS FX Status: Acute Current Visit: Yes Qualifiers: Encounter type: initial encounter Fracture type: closed Fracture morphology: other fracture Qualified Code(s): S22.088A - Other fracture of T11-T12 vertebra, initial encounter for closed fracture (2) Laceration of ear SNOMED Code(s): 26432643, 473024145 ICD Code: S01.319A - LACERATION WITHOUT FOREIGN BODY OF UNSP EAR, INIT ENCNTR Status: Acute Current Visit: Yes Qualifiers: Encounter type: initial encounter Laterality: left Qualified Code(s): S01.312A - Laceration without foreign body of left ear, initial encounter - Patient Summary/Data Consults: Consultations 03/30/21 17:58 PT Evaluation and Treatment [CONS] Routine Please Evaluate and Treat. PT Reason for Consult: T12 fracture This query below is only for informational purposes and is not editable. Hospital Course: Karen presented to the emergency room with back pain and a bleeding left ear after falling down a hill and rolling over retaining wall and falling about 5 feet. Her ear laceration was sutured in the emergency room. She had a CT of the cervical spine as well as chest, abdomen and pelvis. There is no evidence for cervical spine fracture. We did note an age indeterminant fracture of T5 through the superior endplate which was mild as well as an acute fracture through the superior endplate of T12. Neither of these fractures were displaced. Incidentally noted was a 3.3 cm circumscribed lesion in the left upper quadrant retroperitoneum. Differential included fibroma versus pathologic lymph node versus other. PET/CT was recommended. Patient was admitted to the hospital for pain management because she was unable to stand up and ambulate in the emergency room. Over the next couple of days her pain steadily improved with use of oxycodone, acetaminophen and ibuprofen. We did also utilize muscle relaxers. She has worked with physical therapy. She is able to move around fairly well though she does have a fair amount of pain left. She would like to try it at home because she is feeling better and lives quite a distance from here. She will continue to use the combination of acetaminophen, ibuprofen as well as oxycodone and tizanidine. She will be following up with her primary care provider in 1 to 2 weeks or sooner if she does not continue to improve. At the time of follow-up she will not discuss the PET CT scan and get that scheduled. - Patient Instructions Diet: Regular Diet as Tolerated Activity: As Tolerated, No Lifting Over 20 Pounds Driving: Do Not Drive (if taking pain pills or muscle relaxers ) Showering/Bathing: May Shower Wound/Incision Care: Keep Operative Site/Wound Site Clean and Dry (left ear sutures) Notify Provider of: Fever, Increased Pain Other/Special Instructions: 1. You were in the hospital for observation and pain control following a fall that resulted in a fracture through the superior en dplate of your T12 vertebrae. The fall also resulted in a laceration to your left ear as well as a variety of other bumps and bruises. You will likely continue to experience pain for several days to maybe a couple of weeks but you should see improvement each day. I recommend that you use acetaminophen and or ibuprofen for mild pain. I did provide a limited prescription of oxycodone to use for more intense pain. I did also provide a prescription for muscle relaxers to use if you have muscle spasms in your back. I encourage you to keep moving and stay active while avoiding strenuous activities and lifting more than 20 pounds. As your pain starts to subside you may increase your activity as tolerated. I would anticipate you should feel close to normal over the next 2 to 4 weeks. 2. During the work-up for your injuries related to the fall we discovered a 3.3 cm well-circumscribed lesion in your left upper quadrant. At this time we do not know what this lesion represents and it may be benign but could be something of concern such as malignancy. I would encourage you to talk to your primary care physician about setting up a PET CT for further evaluation. We did send a copy of the images on a CD for you to give to the provider that you follow-up with. 3. Continue your usual home medications as previously prescribed. 4. Follow up with your primary care provider in 1 to 2 weeks - Discharge Plan *PRESCRIPTION DRUG MONITORING PROGRAM REVIEWED*: Not Applicable *COPY OF PRESCRIPTION DRUG MONITORING REPORT IN PATIENT [place]: Not Applicable Prescriptions/Med Rec: oxyCODONE 10 mg PO Q4H PRN #40 tablet PRN Reason: Pain tiZANidine HCl [Tizanidine HCl] 2 mg PO Q6H PRN #20 capsule PRN Reason: Muscle Spasm Home Medications: Home Meds Albuterol Sulfate [Albuterol Sulfate Hfa] 1 - 2 puff IH ASDIRECTED 03/30/21 [History] Aspirin [Halfprin] 81 mg PO DAILY 03/30/21 [History] Bisoprolol/Hydrochlorothiazide [Bisoprolol/HCTZ 5-6.25 MG] 1 tab PO DAILY 03/30/21 [History] Famotidine 20 mg PO DAILY 03/30/21 [History] Iron Ps Cmplx/Vit B12/Fa [Poly-Iron 150 Forte] 1 tab PO DAILY 03/30/21 [History] L. Acidophilus/L.bulgaricus [Lactobacillus Tablet] 1 tab PO DAILY 03/30/21 [History] Levothyroxine 75 mcg PO ACBREAKFAST 03/30/21 [History] Losartan [Cozaar] 50 mg PO DAILY 03/30/21 [History] Montelukast [Singulair] 10 mg PO DAILY 03/30/21 [History] Pravastatin [Pravachol] 1 tab PO DAILY 03/30/21 [History] Venlafaxine [Effexor] 75 mg PO BID 03/30/21 [History] hydrOXYzine HCL [Hydroxyzine HCl] 50 mg PO BID 03/30/21 [History] metFORMIN [Glucophage] 1,000 mg PO BIDMEALS 03/30/21 [History] tiZANidine [Zanaflex] 2 mg PO BEDTIME 03/30/21 [History] oxyCODONE 10 mg PO Q4H PRN #40 tablet 04/01/21 [Rx] tiZANidine HCl [Tizanidine HCl] 2 mg PO Q6H PRN #20 capsule 04/01/21 [Rx] Patient Handouts: Laceration Care, Adult, Thoracic Spine Fracture, Oxycodone tablets or capsules Referrals: PCP,None [Primary Care Provider] - (Follow-up with your primary care provider in 1 to 2 weeks to recheck injuries from the fall and discuss PET CT scan) - Discharge Summary/Plan Comment DC Time >30 min.: No - Patient Data Vitals - Most Recent: Last Vital Signs Temp 35.9 C L 04/01/21 12:10 Pulse 89 04/01/21 12:10 Resp 16 04/01/21 12:10 BP 113/61 04/01/21 12:10 Pulse Ox 95 04/01/21 12:10 Weight - Most Recent: 106.866 kg I&O - Last 24 hours: Intake & Output 03/31/21 04/01/21 04/01/21 22:59 06:59 14:59 Intake Total 480 Balance 480 Med Orders - Current: Current Medications Acetaminophen (Acetaminophen 325 Mg Tab) 650 mg PO Q4H PRN PRN Reason: Fever/Headache Last Admin: 04/01/21 12:29 Dose: 650 mg Documented by: Albuterol (Albuterol 8 Gm Inhaler) 0 gm INH ASDIRECTED [facility] Albuterol (Albuterol 0.083% 2.5 Mg/3 Ml Neb Soln) 2.5 mg NEB Q4H PRN PRN Reason: Shortness Of Breath/wheezing Aspirin (Aspirin 81 Mg Tab.Ec) 81 mg PO DAILY [facility] Last Admin: 04/01/21 08:27 Dose: 81 mg Documented by: Dextrose (Glucose Gel 15 Gm In 37.5 Gm Tube) 15 gm PO ONETIME PRN PRN Reason: Hypoglycemia Dextrose/Water (50% Dextrose In Water 50 Ml Syringe) 50 ml IV ONETIME PRN PRN Reason: Hypoglycemia Enoxaparin Sodium (Enoxaparin 40 Mg/0.4 Ml Syringe) 40 mg SUBCUT BEDTIME [facility] Last Admin: 03/31/21 20:32 Dose: 40 mg Documented by: Hydromorphone HCl (Hydromorphone 0.5 Mg/0.5 Ml Syringe) 0.5 mg IVPUSH Q2H PRN PRN Reason: Pain (severe 7-10) Last Admin: 04/01/21 07:04 Dose: 0.5 mg Documented by: Hydroxyzine HCl (Hydroxyzine Hcl 25 Mg Tab) 50 mg PO BID [facility] Last Admin: 04/01/21 08:25 Dose: 50 mg Documented by: Ibuprofen (Ibuprofen 600 Mg Tab) 600 mg PO Q6H PRN PRN Reason: Pain (mild 1-3) Last Admin: 04/01/21 07:12 Dose: 600 mg Documented by: Levothyroxine Sodium (Levothyroxine 25 Mcg Tab) 75 mcg PO ACBREAKFAST [facility] Last Admin: 04/01/21 07:15 Dose: 75 mcg Documented by: Losartan Potassium (Losartan 50 Mg Tab) 50 mg PO DAILY [facility] Last Admin: 04/01/21 08:25 Dose: 50 mg Documented by: Metformin HCl (Metformin 500 Mg Tab) 1,000 mg PO BIDMEALS [facility] Last Admin: 04/01/21 08:25 Dose: 1,000 mg Documented by: Nicotine (Nicotine 14 Mg/24 Hr Patch) 14 mg TRDERM DAILY [facility] Last Admin: 04/01/21 08:27 Dose: Not Given Documented by: Nicotine Polacrilex (Nicotine Polacrilex 2 Mg Gum) 2 mg CHEW Q1H PRN PRN Reason: Other Non-Formulary Medication (Bisoprolol/Hydrochlorothiazide [Bisoprolol/Hctz 5-6.25 Mg]) 1 tab PO DAILY [facility] Ondansetron HCl (Ondansetron 4 Mg/2 Ml Sdv) 4 mg IV Q4H PRN PRN Reason: Nausea/Vomiting Last Admin: 03/31/21 18:35 Dose: 4 mg Documented by: Oxycodone HCl (Oxycodone 5 Mg Tab) 5 - 10 mg PO Q4H PRN PRN Reason: Pain Last Admin: 04/01/21 12:29 Dose: 10 mg Documented by: Pantoprazole Sodium (Pantoprazole 40 Mg Tab.Cr) 40 mg PO ACBREAKFAST [facility] Last Admin: 04/01/21 07:14 Dose: 40 mg Documented by: Polyethylene Glycol (Polyethylene Glycol 3350 Powder 17 Gm Packet) 17 gm PO DAILY PRN PRN Reason: Constipation Pravastatin Sodium (Pravastatin 20 Mg Tab) 40 mg PO DAILY [facility] Last Admin: 04/01/21 08:25 Dose: 40 mg Documented by: Sodium Chloride (Sodium Chloride 0.9% 10 Ml Syringe) 10 ml FLUSH ASDIRECTED PRN PRN Reason: Keep Vein Open Tizanidine HCl (Tizanidine 2 Mg Tab) 2 mg PO BEDTIME [facility] Last Admin: 03/31/21 20:31 Dose: 2 mg Documented by: Tizanidine HCl (Tizanidine 4 Mg Tab) 2 mg PO Q6H PRN PRN Reason: Muscle Spasm Last Admin: 04/01/21 07:13 Dose: 2 mg Documented by: Venlafaxine HCl (Venlafaxine 75 Mg Tab) 75 mg PO BID [facility] Last Admin: 04/01/21 08:25 Dose: 75 mg Documented by: Discontinued Medications Acetaminophen (Acetaminophen 325 Mg Tab) 650 mg PO NOW ONE Stop: 03/30/21 15:00 Last Admin: 03/30/21 15:16 Dose: 650 mg Documented by: Fentanyl (Fentanyl 100 Mcg/2 Ml Sdv) Confirm Administered Dose 100 mcg .ROUTE .STK-MED ONE Stop: 03/30/21 13:31 Last Admin: 03/30/21 18:09 Dose: Not Given Documented by: Fentanyl (Fentanyl 100 Mcg/2 Ml Sdv) 50 mcg IVPUSH ONETIME ONE Stop: 03/30/21 12:01 Last Admin: 03/30/21 13:35 Dose: 50 mcg Documented by: Sodium Chloride (Normal Saline) 80 mls @ 3 mls/sec IV ASDIRECTED [facility] Stop: 03/30/21 11:01 Last Admin: 03/30/21 11:44 Dose: 3 mls/sec Documented by: Sodium Chloride (Normal Saline) 1,000 mls @ 125 mls/hr IV ASDIRECTED [facility] Last Admin: 03/31/21 02:00 Dose: 125 mls/hr Documented by: Insulin Human Lispro (Insulin Lispro 100 Unit/Ml 3 Ml Kwikpen) 0 unit SUBCUT QIDACANDBED [facility]; Protocol Last Admin: 03/31/21 12:18 Dose: Not Given Documented by: Iopamidol (Iopamidol 612 Mg/Ml 100 Ml Bottle) 100 ml IV . DIRECTED [facility] Stop: 03/30/21 12:00 Last Admin: 03/30/21 11:44 Dose: 100 ml Documented by: Lidocaine HCl (Lidocaine 1% 5 Ml Sdv) Confirm Administered Dose 5 ml .ROUTE .STK-MED ONE Stop: 03/30/21 14:32 Last Admin: 03/30/21 16:44 Dose: 5 ml Documented by: Lidocaine HCl (Lidocaine 1% 5 Ml Sdv) 5 ml INJECT ONETIME ONE Stop: 03/30/21 14:31 Last Admin: 03/31/21 08:37 Dose: Not Given Documented by: Ondansetron HCl (Ondansetron 4 Mg/2 Ml Sdv) 4 mg IVPUSH ONETIME ONE Stop: 03/30/21 14:59 Last Admin: 03/30/21 15:14 Dose: 4 mg Documented by: Oxycodone HCl (Oxycodone 5 Mg Tab) 5 mg PO ONETIME ONE Stop: 03/30/21 14:59 Last Admin: 03/30/21 15:16 Dose: 5 mg Documented by: Oxycodone HCl (Oxycodone 5 Mg Tab) 5 mg PO Q4H PRN PRN Reason: Pain (moderate 4-6) Last Admin: 04/01/21 08:24 Dose: 5 mg Documented by: Sodium Chloride (Sodium Chloride 0.9% 10 Ml Syringe) 10 ml FLUSH ONETIME ONE Stop: 03/30/21 10:50 Last Admin: 03/30/21 11:44 Dose: 10 ml Documented by:
== END 2021-04-01 17:15 | disposition home or self-care (01) ==
LOC: JP.ED 10:25 → EDBD 10:25 → JP.MS 16:35
PROVIDERS: ADMIT Hospitalist; ATTEND Internal Medicine
DX: S22.089A Unspecified fracture of T11-T12 vertebra, initial encounter for closed fracture (principal); S01.312A Laceration without foreign body of left ear, initial encounter; E78.00 Pure hypercholesterolemia, unspecified; I10 Essential (primary) hypertension; I25.2 Old myocardial infarction; E11.9 Type 2 diabetes mellitus without complications; E03.9 Hypothyroidism, unspecified; E66.9 Obesity, unspecified; G47.30 Sleep apnea, unspecified; F17.210 Nicotine dependence, cigarettes, uncomplicated; Z88.1 Allergy status to other antibiotic agents; Z88.8 Allergy status to other drugs, medicaments and biological substances; Z88.0 Allergy status to penicillin; Z88.2 Allergy status to sulfonamides; Z79.899 Other long term (current) drug therapy; Z79.82 Long term (current) use of aspirin; Z79.84 Long term (current) use of oral hypoglycemic drugs; Z79.890 Hormone replacement therapy; Z98.890 Other specified postprocedural states; W17.81XA Fall down embankment (hill), initial encounter
CPT/HCPCS: 12002; 36415; 70450; 71045; 71260; 72125; 74177; 80048; 80053; 82947; 83735; 85025; 85027; 94762; 96372; 96374; 96375; 96376; 97116; 97162; 97535; 99285; A9270; G0378; J1170; J1650; J1815; J2405; J3010; J7030; Q9967